=== PATIENT | male | born 1975 | race Hispanic/Latino ===

== ENCOUNTER → 2018-12-22 | Outpatient (CLI) | payer OTHER ==
--- NOTE | 2018-12-22 14:40 | REP ---
MRI RIGHT SHOULDER: TECHNIQUE: Axial T2 fat sat, gradient echo, sagittal oblique T2 fat sat, coronal oblique T1, T2 fat sat. There is increased signal on T2-weighted images extending through the entire thickness of the distal supraspinatus tendon anteriorly consistent with partial full thickness tear. The gap in the tendon is at least 1.3 cm. Otherwise, the other rotator cuff tendons appear intact. There are mild hypertrophic degenerative changes of the acromioclavicular joint. Acromion is type 1. Biceps tendon is within the bicipital groove without significant tenosynovitis. There is no Hill-Sachs deformity. Deltoid muscle demonstrates no abnormal signal. Biceps labral complex is intact. I do not see definite evidence of a labral tear. There is no paralabral cyst. Mild subchondral cystic changes are seen in the superolateral humeral head. There is no occult fracture. There is a small joint effusion with a very small amount of fluid in the subacromial-subdeltoid bursae. IMPRESSION: Full thickness partial tear anterior supraspinatus tendon distally. Mild hypertrophic degenerative changes acromioclavicular joint. No evidence of a labral tear. Small joint effusion with very small amount of fluid in the subacromial-subdeltoid bursae. Electronically Signed by Bruno Sanchez MD 12/23/2018 12:28 P
== END ==
LOC: M RAD 06:25
PROVIDERS: ATTEND Physician Assistant Medical
DX: M25.511 Pain in right shoulder (principal); M19.011 Primary osteoarthritis, right shoulder; M25.411 Effusion, right shoulder

== ENCOUNTER 2023-03-11 09:02 | Day surgery (SDC) | payer OTHER ==
[~2023-03-11] VITALS: Ht 167.6 cm; Wt 115.4 kg
[~2023-03-11 09:02] MED LIST: METF500T13 PO; METO1TAB7 PO; NS 1,000 ML IV ONE
[2023-03-11 10:38] VITALS: TEMP 98.4
[2023-03-11 10:55] VITALS: BP 170/100; O2SAT 98
== END 2023-03-11 11:00 | disposition home or self-care (01) ==
LOC: M OPP 09:02
PROVIDERS: ATTEND Internal Medicine Gastroenterology
DX: Z12.11 Encounter for screening for malignant neoplasm of colon (principal); K64.0 First degree hemorrhoids; K63.3 Ulcer of intestine; Z79.84 Long term (current) use of oral hypoglycemic drugs; Z79.899 Other long term (current) drug therapy; Z88.5 Allergy status to narcotic agent

== ENCOUNTER → 2023-12-31 | Outpatient (CLI) | payer OTHER ==
[~2023-12-31] MED LIST changes: -NS 1,000 ML IV ONE
== END ==
LOC: M SLEEP 20:00
PROVIDERS: ATTEND Nurse Practitioner Family
DX: G47.33 Obstructive sleep apnea (adult) (pediatric) (principal)

== ENCOUNTER → 2024-02-29 | Outpatient (CLI) | payer OTHER | LOC: M SLEEP 20:00 | PROVIDERS: ATTEND Nurse Practitioner Family | DX: G47.33 Obstructive sleep apnea (adult) (pediatric) (principal); G47.61 Periodic limb movement disorder ==